=== PATIENT | female | born 1995 | race American Indian/Alaskan Native ===

== ENCOUNTER 2021-01-13 07:42 | Emergency (ER) | payer MEDICAID ==
--- NOTE | 2021-01-13 08:39 | Emergency Department Report ---
ED General Adult HPI - General Chief complaint: Fever Stated complaint: BODY ACHES/HEADACHE/FEVER PUI?: Yes Time Seen by Provider: 01/13/21 08:13 Source: patient Mode of arrival: Ambulatory Limitations: No Limitations - History of Present Illness Initial comments: Is a very pleasant 25-year-old female presents the emergency department with a chief complaint of fever she reports as high as 105, generalized body aches, malaise, bilateral ear pain, cough and congestion and sinus congestion over the past 2 to 3 days. 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 She did not get a COVID-19 vaccine yet. She has a past medical history of Hodgkin's lymphoma and previous MA. She denies any associated chest pain, shortness of breath, nausea,, diarrhea, weakness or any other associated symptoms. - Related Data Previous Rx's Medication Instructions Recorded Last Taken Type Amoxicillin/Potassium Clav 1 each PO BID #20 tablet 01/13/21 Unknown Rx [Augmentin 875-125 Tablet] methylPREDNISolone [Medrol 4MG 4 mg PO ONCE #1 tab.ds.pk 01/13/21 Unknown Rx DOSEPAK (21 tabs)] Allergies Allergy/AdvReac Type Severity Reaction Status Date / Time No Known Allergies Allergy Verified 01/13/21 07:48 ED Review of Systems ROS: Stated complaint: BODY ACHES/HEADACHE/FEVER Other details as noted in HPI Comment: All other systems reviewed and negative Constitutional: see HPI, fever, malaise. denies: chills Eyes: denies: eye pain, eye discharge, vision change ENT: as per HPI, ear pain, congestion. denies: throat pain Respiratory: see HPI, cough. denies: shortness of breath, wheezing Cardiovascular: denies: chest pain, palpitations Endocrine: no symptoms reported Gastrointestinal: denies: abdominal pain, nausea, diarrhea Genitourinary: denies: urgency, dysuria, discharge Musculoskeletal: as per HPI, myalgia. denies: back pain, joint swelling, arthralgia Skin: denies: rash, lesions Neurological: as per HPI, headache. denies: weakness, paresthesias Psychiatric: denies: anxiety, depression Hematological/Lymphatic: denies: easy bleeding, easy bruising ED Past Medical Hx - Past Medical History Previous Medical History?: Yes Hx Heart Attack/AMI: Yes (2019) Hx of Cancer: Yes (hodkins lymphoma) - Surgical History Past Surgical History?: Yes - Social History Smoking Status: Never Smoker Substance Use Type: None - Medications Home Medications: Home Medications Medication Instructions Recorded Confirmed Last Taken Type Amoxicillin/Potassium Clav 1 each PO BID #20 tablet 01/13/21 Unknown Rx [Augmentin 875-125 Tablet] methylPREDNISolone [Medrol 4MG 4 mg PO ONCE #1 tab.ds.pk 01/13/21 Unknown Rx DOSEPAK (21 tabs)] ED Physical Exam - General Limitations: No Limitations General appearance: alert, in no apparent distress - Head Head exam: Present: atraumatic, normocephalic - Eye Eye exam: Present: normal appearance, PERRL, EOMI Pupils: Present: normal accommodation - ENT ENT exam: Present: normal exam, normal orophraynx, mucous membranes moist, other (right TM is occluded by cerumen impaction ) - Neck Neck exam: Present: normal inspection, full ROM. Absent: tenderness, meningismus - Respiratory Respiratory exam: Present: normal lung sounds bilaterally. Absent: respiratory distress, wheezes, rales, rhonchi, stridor, chest wall tenderness - Cardiovascular Cardiovascular Exam: Present: regular rate, normal rhythm, normal heart sounds. Absent: systolic murmur, diastolic murmur, rubs, gallop - GI/Abdominal GI/Abdominal exam: Present: soft, normal bowel sounds. Absent: distended, guarding, rebound, rigid - Rectal Rectal exam: Present: deferred - Extremities Exam Extremities exam: Present: normal inspection, full ROM, normal capillary refill. Absent: tenderness, calf tenderness - Back Exam Back exam: Present: normal inspection, full ROM. Absent: tenderness, CVA tenderness (R), CVA tenderness (L) - Neurological Exam Neurological exam: Present: alert, oriented X3, CN II-XII intact, normal gait - Psychiatric Psychiatric exam: Present: normal affect, normal mood - Skin Skin exam: Present: warm, dry, intact, normal color. Absent: rash ED Course - Reevaluation(s) Reevaluation #1: 01/13/21 10:45 Patient nontoxic in no acute distress. Vital signs are stable. Sirs criteria is negative at this time. The influenza swab was negative. Patient had no other symptoms of Covid other than cough and congestion. She had no loss of taste or smell, diarrhea, or any other associated symptoms. I did educate her that it is important that she get tested for COVID-19 and not return to work until she is negative or until she is done on 14-day quarantine per the CDC guidelines. She verbalized understand these instructions. I will treat her sinuses for what is suspected sinus infection with Augmentin, steroids and outpatient follow-up with primary care doctor. She is instructed to return to the ER immediately she develops any change or worsening symptoms. She is a low risk by Wells criteria for PE making this unlikely. - Ear Wax Removal Right Ear Ear Canal(s) Curettaged: plastic loops TM Visible: TM(s) intact, normal appe Ear Canal: atraumatic Patient Tolerated Procedure: well, no complications Complications: no problems ED Medical Decision Making - Radiology Data Radiology results: report reviewed, image reviewed No acute thoracic findings on x-ray per radiology review - Medical Decision Making Patient nontoxic in no acute distress. Low risk by Wells criteria for PE. Chest x-ray clear. Urine looked contaminated and patient not having any symptoms of UTI making this unlikely. Influenza a and B was negative. Patient given Covid precautions and follow-up PCP. - Differential Diagnosis COVID-19, viral syndrome, influenza, pneumonia Critical care attestation.: If time is entered above; I have spent that time in minutes in the direct care of this critically ill patient, excluding procedure time. ED Disposition Clinical Impression: Acute bacterial sinusitis, Acute viral syndrome, Impacted cerumen of right ear Disposition: DC-01 TO HOME OR SELFCARE Is pt being admited?: No Condition: Stable Instructions: Sinusitis, Adult, [id number] Prescriptions: Amoxicillin/Potassium Clav [Augmentin 875-125 Tablet] 1 each PO BID #20 tablet methylPREDNISolone [Medrol 4MG DOSEPAK (21 tabs)] 4 mg PO ONCE #1 tab.ds.pk Referrals: ENMANUEL PALMER MD [Primary Care Provider] - 3-5 Days Forms: Work/School Release Form(ED) Time of Disposition: 10:48
[2021-01-13 09:05] LABS: Bilirubin,Urine NEG (Negative); Blood,Urine NEG (Negative); Color,Urine Yellow (Yellow); Mucus,Urine FEW /HPF; Protein,Urine <15 mg/dL mg/dL (Negative); Urobilinogen,Urine < 2.0 mg/dL (<2.0)
[2021-01-13 09:06] LABS: HCG Qualitative,Urine Negative (Negative)
--- NOTE | 2021-01-13 10:45 | XRay Report ---
CHEST 2 VIEWS INDICATION: cough, fever. COMPARISON: None. FINDINGS: Support devices: None. Heart: Within normal limits. Lungs/Pleura: No acute air space or interstitial disease. No significant pleural effusion. IMPRESSION: No acute findings. Signer Name: Roscoe Cevallos MD Signed: 01/13/2021 10:40 AM Workstation Name: [id number]
== END 2021-01-13 11:42 | disposition home or self-care (01) ==
LOC: ED 07:42
DX: J01.90 Acute sinusitis, unspecified (principal); B96.89 Other specified bacterial agents as the cause of diseases classified elsewhere; B34.9 Viral infection, unspecified; H61.21 Impacted cerumen, right ear; I25.2 Old myocardial infarction; Z98.890 Other specified postprocedural states; Z79.2 Long term (current) use of antibiotics; Z79.899 Other long term (current) drug therapy
CPT/HCPCS: 71046; 81001; 81025; 87086; 87400

== ENCOUNTER 2021-05-31 18:59 | Emergency (ER) | payer MEDICAID ==
--- NOTE | 2021-05-31 19:59 | Emergency Department Report ---
ED Psych HPI - General Chief Complaint: Overdose Stated Complaint: SUICIDAL Time Seen by Provider: 05/31/21 19:50 Source: patient, EMS Mode of arrival: Stretcher - History of Present Illness Initial Comments: Patient is 25-year-old female with history of Hodgkin lymphoma. Patient brought to the emergency room for evaluation after intentional drug overdose. Patient stated that she had an argument with her boyfriend and she took unknown amount of Benadryl and Flagyl. Patient stated that this is happened approximately at 5 PM this afternoon. Patient denied any homicidal ideation. She also denied any auditory or visual hallucination. She denied any previous psychiatric history or inpatient psychiatric admission. MD Complaint: suicidal ideation, feels depressed -: This afternoon Associated Psychiatric Symptoms: depression, suicidal ideation History of same: No If Self Harm: admits thoughts of, has acted on plan, intentional overdose - Related Data Previous Rx's Medication Instructions Recorded Last Taken Type Amoxicillin/Potassium Clav 1 each PO BID #20 tablet 01/13/21 Unknown Rx [Augmentin 875-125 Tablet] methylPREDNISolone [Medrol 4MG 4 mg PO ONCE #1 tab.ds.pk 01/13/21 Unknown Rx DOSEPAK (21 tabs)] Allergies Allergy/AdvReac Type Severity Reaction Status Date / Time No Known Allergies Allergy Verified 01/13/21 07:48 ED Review of Systems ROS: Stated complaint: SUICIDAL Other details as noted in HPI Comment: All other systems reviewed and negative Constitutional: denies: chills, fever Cardiovascular: denies: chest pain, palpitations Gastrointestinal: denies: abdominal pain, nausea, vomiting Psychiatric: depression, suicidal thoughts. denies: auditory hallucinations, visual hallucinations, homicidal thoughts ED Past Medical Hx - Past Medical History Hx Heart Attack/AMI: Yes (2019) Additional medical history: Hodgkins lymphoma, - Surgical History Past Surgical History?: Yes Additional Surgical History: Lymph Nodes removed, Bone Marrow - Social History Smoking Status: Never Smoker Substance Use Type: None - Medications Home Medications: Home Medications Medication Instructions Recorded Confirmed Last Taken Type Amoxicillin/Potassium Clav 1 each PO BID #20 tablet 01/13/21 Unknown Rx [Augmentin 875-125 Tablet] methylPREDNISolone [Medrol 4MG 4 mg PO ONCE #1 tab.ds.pk 01/13/21 Unknown Rx DOSEPAK (21 tabs)] ED Physical Exam - General Limitations: No Limitations General appearance: alert, other (depressed,tearful) - Head Head exam: Present: atraumatic, normocephalic, normal inspection - ENT ENT exam: Present: normal exam, normal orophraynx, mucous membranes moist - Neck Neck exam: Present: normal inspection, full ROM. Absent: tenderness, meningismus - Respiratory Respiratory exam: Present: normal lung sounds bilaterally - Cardiovascular Cardiovascular Exam: Present: regular rate, normal rhythm, normal heart sounds - GI/Abdominal GI/Abdominal exam: Present: soft, normal bowel sounds. Absent: distended, tenderness, guarding, rebound, rigid, organomegaly, mass, bruit, pulsatile mass, hernia - Extremities Exam Extremities exam: Present: normal inspection, full ROM, normal capillary refill. Absent: tenderness - Back Exam Back exam: Present: normal inspection, full ROM. Absent: CVA tenderness (R), CVA tenderness (L) - Neurological Exam Neurological exam: Present: alert, oriented X3, CN II-XII intact, normal gait, reflexes normal. Absent: motor sensory deficit - Psychiatric Psychiatric exam: Present: normal mood - Skin Skin exam: Present: warm, intact, normal color ED Course Vital Signs 05/31/21 05/31/21 05/31/21 20:08 20:15 20:31 Pulse Rate 105 H 102 H 114 H Respiratory 22 20 16 Rate Blood Pressure 108/60 108/60 O2 Sat by Pulse 100 99 Oximetry 05/31/21 05/31/21 05/31/21 20:43 20:45 21:15 Pulse Rate 106 H 99 H Respiratory 17 20 Rate Blood Pressure 108/60 108/60 O2 Sat by Pulse 100 100 98 Oximetry 05/31/21 05/31/21 05/31/21 21:45 22:01 22:15 Pulse Rate 101 H 113 H 106 H Respiratory 20 22 22 Rate Blood Pressure 114/67 93/55 97/55 O2 Sat by Pulse 100 99 99 Oximetry 05/31/21 22:31 Pulse Rate 103 H Respiratory 22 Rate Blood Pressure 97/55 O2 Sat by Pulse 99 Oximetry ED Medical Decision Making - Lab Data Result diagrams: 05/31/21 19:59 05/31/21 19:59 - Medical Decision Making Patient is 25-year-old female with history of Hodgkin lymphoma. Patient brought to the emergency room for evaluation after intentional drug overdose. Patient stated that she had an argument with her boyfriend and she took unknown amount of Benadryl and Flagyl. Patient stated that this is happened approximately at 5 PM this afternoon. Patient denied any homicidal ideation. She also denied any auditory or visual hallucination. She denied any previous psychiatric history or inpatient psychiatric admission. Patient remained alert, oriented x3 in no acute distress. Labs reviewed and is unremarkable. EKG is unremarkable. Poison control contacted for further information please refer to nurse's notes. Patient has been observed in the emergency room for more than 6-hour. Patient is medically cleared to be admitted to a psychiatric facility for further management. Critical care attestation.: If time is entered above; I have spent that time in minutes in the direct care of this critically ill patient, excluding procedure time. ED Disposition Clinical Impression: Suicide attempt, Intentional drug overdose Disposition: DC/TX-65 PSY HOSP/PSY UNIT Is pt being admited?: No Condition: Stable Referrals: PRIMARY CARE, [Primary Care Provider] - 3-5 Days
[2021-05-31 20:10] LABS: Basophils % (Auto) 0.8 % (0.0-1.8); Eosinophils # (Auto) 0.4 K/mm3 (0.0-0.4); Eosinophils % (Auto) 6.8 % (0.0-4.3); Hematocrit 42.8 % (30.3-42.9); Hemoglobin 14.4 gm/dl (10.1-14.3); Lymphocytes # (Auto) 1.4 K/mm3 (1.2-5.4); Lymphocytes % (Auto) 23.7 % (13.4-35.0); Mean Corpuscular HGB Conc 34 % (30-34); Mean Corpuscular Volume 87 fl (79-97); Monocytes # (Auto) 0.6 K/mm3 (0.0-0.8); Monocytes % (Auto) 10.5 % (0.0-7.3); Platelet Count 241 K/mm3 (140-440); Red Blood Count 4.91 M/mm3 (3.65-5.03); Red Cell Distribution Width 14.4 % (13.2-15.2)
[2021-05-31 20:31] LABS: Blood Urea Nitrogen 7 mg/dL (7-17); Calcium 9.6 mg/dL (8.4-10.2); Hemolysis Index 44
[2021-05-31 20:33] LABS: Bilirubin,Urine NEG (Negative); Blood,Urine NEG (Negative); Color,Urine Straw (Yellow); Protein,Urine <15 mg/dL mg/dL (Negative); Urobilinogen,Urine < 2.0 mg/dL (<2.0)
[2021-05-31 20:35] LABS: BUN/Creatinine Ratio 10
[2021-05-31 20:39] LABS: Amphetamine Screen,Urine Negative; Benzodiazepines Screen,Urine Negative; Cannabinoid Screen,Urine Negative; Cocaine Screen,Urine Negative; Methadone Screen,Urine Negative; Opiate Screen,Urine Negative
[2021-06-01 10:37] VITALS: BP 106/60
--- NOTE | 2021-06-03 09:10 | Electrocardiograph Report ---
[facility] Test Date: 2021-05-31 Test Time: 20:47:08 Pat Name: SHANNANRAQUEL HUMMEL Department: Room: Gender: F Preschool Director: ED NURSE : 1995 Requested By: NORMAN ARAIZA Order Number: [id number] Reading MD: Steve Marquez Measurements Intervals [place] Rate: 103 P: 73 [place]: 138 QRS: 96 QRSD: 82 T: 48 QT: 334 QTc: 437 Interpretive Statements Sinus tachycardia No previous ECG available for comparison Electronically Signed On 06-03-2021 9:09:41 EDT by Steve Marquez
== END 2021-06-01 14:00 ==
LOC: ED 18:59
DX: T14.91XA Suicide attempt, initial encounter (principal); T45.0X2A Poisoning by antiallergic and antiemetic drugs, intentional self-harm, initial encounter; I25.2 Old myocardial infarction; Z88.8 Allergy status to other drugs, medicaments and biological substances; Z79.899 Other long term (current) drug therapy; Z98.890 Other specified postprocedural states; Y92.89 Other specified places as the place of occurrence of the external cause
CPT/HCPCS: 36415; 80048; 80307; 80320; 81001; 84703; 85025; 93005; G0480